=== PATIENT | female | born 1980 | race Caucasian/White ===

== ENCOUNTER 2020-06-01 18:52 | Emergency (ER) | payer OTHER ==
[2020-06-01] MEDS ORDERED: Sodium Chloride 0.9% 10 ML Syringe FLUSH PRN (19:26)
[2020-06-01] MEDS ORDERED: Morphine 2 MG/ML SYRINGE IVPUSH ONE ×2 (19:31→21:46)
[2020-06-01] MEDS ORDERED: LORazepam 2 MG/ML SDV IVPUSH ONE (19:31)
[2020-06-01] MEDS ORDERED: Cyclobenzaprine 10 MG Tab PO ONE (19:31)
[2020-06-01] MEDS ORDERED: Ketorolac 30 MG/ML SDV IVPUSH ONE (19:31)
[2020-06-01] MEDS ORDERED: Sodium Chloride 0.9% 1,000 ML IV SCH (19:45)
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
== END 2020-06-01 22:20 | disposition home or self-care (01) ==
LOC: FB.ED 18:52
DX: S52.572A Other intraarticular fracture of lower end of left radius, initial encounter for closed fracture (principal); S22.41XA Multiple fractures of ribs, right side, initial encounter for closed fracture; Z87.891 Personal history of nicotine dependence; V43.53XA Car driver injured in collision with pick-up truck in traffic accident, initial encounter
CPT/HCPCS: 36415; 71101-RT; 73110-LT; 73130-LT; 80053; 80307; 82150; 83690; 85025; 85610; 85730; 96374; 96375; 96376; 99284; 99285-25; A9270-GY; J1885; J2270; J7030